=== PATIENT | female | born 1965 | race Two or more races ===

== ENCOUNTER 2023-12-31 20:52 | Inpatient (IN) | payer OTHER ==
[~2023-12-31] VITALS: Ht 149.9 cm; Wt 98.9 kg
[2023-12-31] MEDS ORDERED: LANTUS SOL100 UNIT/1 (20:58)
[2023-12-31] MEDS ORDERED: TOPROL XL100 M1 (20:58)
[2023-12-31] MEDS ORDERED: GLIMEPIRIDE4 MG (20:59)
--- NOTE | 2023-12-31 21:01 | NUR ---
PACIENTE ALERTA Y ORIENTADA X3 QUIEN REFIERE HABERSE INTRODUCIDO UN VIBRADOR POR EL AREA DEL ANO EL CUAL ES DE APROX 3-5 PULGADAS. PACIENTE REFIERE NO TENER DOLOR.
[2023-12-31] MEDS ORDERED: ACETAMINOPHEN WITH CODEINE 1 UDTAB TABLET PO ONE (22:00)
--- NOTE | 2023-12-31 22:03 | NUR ---
SE ORIENTA A PACIENTE SOBRE TX MEDICO, REFIERE ENTENDER. SE ADMINISTRA MEDICAMENTO CRISTINA ORDEN MEDICA. SE COORDINA OTILIO X.
[2023-12-31] MEDS ORDERED: LIDOCAINE HCL VISCOUS 20MG/ML BLIST 15ML MM ONE (22:21)
[2024-01-01] MEDS ORDERED: ONDANSETRON HCL 4 MG in 0.9 % SODIUM CHLORIDE 50 ML IV PRN (00:45)
[2024-01-01] MEDS ORDERED: DEXTROSE 50 % IN WATER 0.5 G/ML DISP.SYRIN IV PRN (00:45)
[2024-01-01] MEDS ORDERED: INSULIN LISPRO 1,000 UNIT/10 ML UNITS SUBCUTANEO PRN (00:45)
[2024-01-01] MEDS ORDERED: 0.9 % SODIUM CHLORIDE 1,000 ML IV SCH (00:45)
[2024-01-01] MEDS ORDERED: MEPERIDINE HCL/PF 25 MG/ML VIAL IM PRN (00:45)
[2024-01-01] MEDS ORDERED: ACETAMINOPHEN 500 MG GEL..CAP PO PRN (00:45)
[2024-01-01 02:49] LABS: HEMATOCRIT 40.1 % (36.0-45.00); HEMOGLOBIN 13.1 g/dL (12.0-15.00); MEAN CELL VOLUME 77.5 fL (80.00-100.00); MEAN CORPUSCULAR HEMOGLOBIN 25.3 pg (27.00-32.0); MEAN CORPUSCULAR HGB CONC 32.6 g/dl (32.0-36.0); PLATELET COUNT 227 K/uL (150-450); RED BLOOD COUNT 5.18 M/uL (4.00-6.00); RED CELL DISTRIBUTION WIDTH 17.1 % (11.5-14.5)
[2024-01-01 03:12] LABS: INR 1.03; PARTIAL THROMBOPLASTIN TIME 27.6 SECONDS (22.0-34.0); PROTHROMBIN TIME 10.8 SECONDS (9.0-11.5)
[2024-01-01 03:14] LABS: BILIRUBIN TOTAL 0.4 mg/dL (0.3-1.2); CREATININE SERUM 0.6 mg/dL (0.55-1.02); GFR 102.32; POTASSIUM 4.03 mEq/L (3.5-5.1)
[2024-01-01 06:10] LABS: URINE APPEARANCE Cloudy; URINE BILIRRUBIN Negative (NEGATIVE); URINE BLOOD Large; URINE COLOR Yellow; URINE GLUCOSE Negative (NEGATIVE); URINE KETONE Negative (NEGATIVE); URINE LEUKOCYTE Large; URINE NITRATE Positive; URINE PROTEIN 30 (NEGATIVE); URINE UROBILINOGEN 0.2 E.U./dl
[2024-01-01 06:13] LABS: URINE EPITHELIAL CELLS 3.7 uL (0.0-38.8); URINE RBC 46.8 uL (0.0-20.8); URINE WBC 2402.2 uL (0.0-23.2)
[2024-01-01 06:14] LABS: URINE BACTERIA > 9821.5 uL (0.0-1933); URINE CAST 0.45 uL (0.0-1.40)
[2024-01-01] MEDS ORDERED: FAMOTIDINE/PF 20 MG in 0.9 % SODIUM CHLORIDE 8 ML IV PUSH SCH (09:00)
[2024-01-01] MEDS ORDERED: IRBESARTAN 150 MG TABLET PO SCH (09:00)
[2024-01-01] MEDS ORDERED: METOPROLOL SUCCINATE 100 MG TAB.SR.24H PO SCH (09:00)
[2024-01-01] MEDS ORDERED: POLYETHYLENE GLYCOL 3350 17 GM BLIST.PACK PO SCH (09:00)
[2024-01-01] MEDS ORDERED: GABAPENTIN 300 MG CAPSULE PO SCH (09:00)
[2024-01-01] MEDS ORDERED: BISACODYL 10 MG/SUPP.RECT SUPP.RECT RECTAL STA (09:50)
== END 2024-01-03 22:44 | disposition home or self-care (01) | DRG 395 ==
LOC: ER → SURG 01-01 00:41
PROVIDERS: Emergency Medicine; General Practice; ADMIT Internal Medicine; ATTEND Internal Medicine
PROC: BW21ZZZ Computerized Tomography (CT Scan) of Abdomen and Pelvis (ICD-10-PCS; principal; 2024-01-01)
DX: T18.5XXA Foreign body in anus and rectum, initial encounter (principal); I10 Essential (primary) hypertension; E11.9 Type 2 diabetes mellitus without complications; Z79.4 Long term (current) use of insulin; W44.B3XA Plastic toy and toy part entering into or through a natural orifice, initial encounter; Y92.019 Unspecified place in single-family (private) house as the place of occurrence of the external cause; Y93.89 Activity, other specified